=== PATIENT | male | born 1960 | race Caucasian/White ===

== ENCOUNTER 2017-09-13 09:56 | Day surgery (SDC) | payer OTHER ==
[~2017-09-13] VITALS: Ht 185.4 cm; Wt 79.4 kg
[2017-09-13] MEDS ORDERED: LEVO88TA54 (10:27)
[2017-09-13] MEDS ORDERED: GLUCAGON EMERGENCY 1 MG/KIT IV ONE (11:00)
[2017-09-13 12:37] LABS: BASOPHILS # (AUTO) 0.1 10^3/uL (0.0-0.1); BASOPHILS % (AUTO) 2 % (0-10); EOSINOPHILS # (AUTO) 0.6 10^3/uL (0.0-0.3); EOSINOPHILS % (AUTO) 8 % (0-10); HEMATOCRIT 42 % (40-54); HEMOGLOBIN 14.3 G/DL (13.3-17.7); LYMPHOCYTES # (AUTO) 1.4 X 10^3 (1.0-4.0); LYMPHOCYTES % (AUTO) 20 % (12-44); MEAN CORPUSCULAR HEMOGLOBIN 30 PG (25-34); MEAN CORPUSCULAR HGB CONC 34 G/DL (32-36); MEAN CORPUSCULAR VOLUME 88 FL (80-99); MEAN PLATELET VOLUME 10.7 FL (7.4-10.4); MONOCYTES # (AUTO) 0.9 X 10^3 (0.0-1.0); MONOCYTES % (AUTO) 14 % (0-12); NEUTROPHILS # (AUTO) 3.8 X 10^3 (1.8-7.8); NEUTROPHILS % (AUTO) 56 % (42-75); PLATELET COUNT 324 10^3/uL (130-400); RED BLOOD COUNT 4.79 10^6/uL (4.35-5.85); RED CELL DISTRIBUTION WIDTH 13.2 % (10.0-14.5); WHITE BLOOD COUNT 6.8 10^3/uL (4.3-11.0)
--- NOTE | 2017-09-13 12:38 | ED General ---
General Chief Complaint: Foreign Body Stated Complaint: STEAK STUCK IN THROAT Nursing Triage Note: pt presents to ed with complaints of steak stuck in his throat since 2100 last night. Pt is able to swallow saliva and small sips of water but ubale to keep food or large amounts of liquid down. pt denies any respiratory symptoms. Nursing Sepsis Screen: No Definite Risk Source of Information: Patient Exam Limitations: No Limitations History of Present Illness Date Seen by Provider: Sep 13, 2017 Time Seen by Provider: 10:50 Initial Comments This 56-year-old gentleman presents to the emergency room with inability to swallow after eating steak last night. He has history of hiatal hernia and sometimes has difficulty swallowing food. However, he has never had obstruction last this long. He has minimal discomfort and no other symptoms. Allergies and Home Medications Allergies Coded Allergies: No Known Drug Allergies (Unverified , 09/13/17) Home Medications Pantoprazole Sodium 40 Mg Tablet.dr, 40 MG PO BID Prescribed by: BELTRAN DE LA CRUZ on 09/13/17 1430 Sucralfate 1 Gm Tablet, 1 GM PO QID Prescribed by: BELTRAN DE LA CRUZ on 09/13/17 1430 Patient Home Medication List Home Medication List Reviewed: Yes Constitutional: no symptoms reported EENTM: no symptoms reported Respiratory: no symptoms reported Cardiovascular: no symptoms reported Gastrointestinal: see HPI Genitourinary: no symptoms reported Musculoskeletal: no symptoms reported Skin: no symptoms reported Psychiatric/Neurological: No Symptoms Reported Hematologic/Lymphatic: No Symptoms Reported Past Gfqgwos-Tfjawc-Aiablh Hx Patient Social History Alcohol Use: Occasionally Uses Recreational Drug Use: No Smoking Status: Never a Smoker Recent Foreign Travel: No Contact w/Someone Who Travel: No Recent Infectious Disease Expo: No Physical Abuse: No Sexual Abuse: No Mistreated: No Fear: No Surgeries History of Surgeries: Yes (roator cuff, upper scope) Surgeries: Abdominal (EGD), Appendectomy, Orthopedic (shoulder) Respiratory History of Respiratory Disorde: No Cardiovascular History of Cardiac Disorders: No Neurological History of Neurological Disord: No Genitourinary History of Genitourinary Disor: No Gastrointestinal History of Gastrointestinal Di: Yes Gastrointestinal Disorders: Hiatal Hernia Musculoskeletal History of Musculoskeletal Dis: No Endocrine History of Endocrine Disorders: Yes Endocrine Disorders: Hypothyroidsim HEENT History of HEENT Disorders: No Cancer History of Cancer: No Psychosocial History of Psychiatric Problem: No Suicide Risk Score: 0 Blood Transfusions History of Blood Disorders: No Physical Exam Vital Signs Vital Signs - First Documented 09/13/17 10:09 Temp 98.1 Pulse 73 Resp 18 B/P (MAP) 116/91 (99) Pulse Ox 96 O2 Delivery Room Air Capillary Refill : Less Than 3 Seconds General Appearance: No Apparent Distress, WD/WN HEENT: PERRL/EOMI, Normal ENT Inspection, Pharynx Normal Neck: Normal Inspection Respiratory: Lungs Clear, Normal Breath Sounds, No Accessory Muscle Use, No Respiratory Distress Cardiovascular: Regular Rate, Rhythm, No Edema, No Murmur Gastrointestinal: Normal Bowel Sounds, Non Tender, Soft Extremity: Normal Inspection, No Pedal Edema Neurologic/Psychiatric: Alert, Oriented x3, No Motor/Sensory Deficits, Normal Mood/Affect, cost report clerk II-XII Norm as Tested Skin: Normal Color, Warm/Dry Progress/Results/Core Measures Suspected Sepsis Recent Fever Within 48 Hours: No Infection Criteria Present: None New/Unexplained Altered Menta: No Sepsis Screen: No Definite Risk Sepsis Diagnosis: SIRS Temperature:98.1 Pulse: 73 Respiratory Rate: 18 Laboratory Tests 09/13/17 10:07: White Blood Count 6.8 Blood Pressure 116 /91 Mean: 99 Laboratory Tests 09/13/17 10:07: Creatinine 0.85, INR Comment 1.0, Platelet Count 324, Total Bilirubin 0.7 Results/Orders Lab Results Laboratory Tests Test 09/13/17 10:07 Range/Units White Blood Count 6.8 4.3-11.0 10^3/uL Red Blood Count 4.79 4.35-5.85 10^6/uL Hemoglobin 14.3 13.3-17.7 G/DL Hematocrit 42 40-54 % Mean Corpuscular Volume 88 80-99 FL Mean Corpuscular Hemoglobin 30 25-34 PG Mean Corpuscular Hemoglobin Concent 34 32-36 G/DL Red Cell Distribution Width 13.2 10.0-14.5 % Platelet Count 324 130-400 10^3/uL Mean Platelet Volume 10.7 H 7.4-10.4 FL Neutrophils (%) (Auto) 56 42-75 % Lymphocytes (%) (Auto) 20 12-44 % Monocytes (%) (Auto) 14 H 0-12 % Eosinophils (%) (Auto) 8 0-10 % Basophils (%) (Auto) 2 0-10 % Neutrophils # (Auto) 3.8 1.8-7.8 X 10^3 Lymphocytes # (Auto) 1.4 1.0-4.0 X 10^3 Monocytes # (Auto) 0.9 0.0-1.0 X 10^3 Eosinophils # (Auto) 0.6 H 0.0-0.3 10^3/uL Basophils # (Auto) 0.1 0.0-0.1 10^3/uL Prothrombin Time 12.9 12.2-14.7 SEC INR Comment 1.0 0.8-1.4 Activated Partial Thromboplast Time 33 24-35 SEC Sodium Level 137 135-145 MMOL/L Potassium Level 4.2 3.6-5.0 MMOL/L Chloride Level 108 H 98-107 MMOL/L Carbon Dioxide Level 24 21-32 MMOL/L Anion Gap 5 5-14 MMOL/L Blood Urea Nitrogen 17 7-18 MG/DL Creatinine 0.85 0.60-1.30 MG/DL Estimat Glomerular Filtration Rate > 60 BUN/Creatinine Ratio 20 Glucose Level 91 70-105 MG/DL Calcium Level 9.0 8.5-10.1 MG/DL Total Bilirubin 0.7 0.1-1.0 MG/DL Aspartate Amino Transf (AST/SGOT) 38 H 5-34 U/L Alanine Aminotransferase (ALT/SGPT) 38 0-55 U/L Alkaline Phosphatase 78 40-136 U/L Total Protein 6.1 L 6.4-8.2 GM/DL Albumin 4.0 3.2-4.5 GM/DL My Orders Orders - AUGUST BAGLEY MD Glucagon Emergency Kit (Glucagon Emergen (09/13/17 11:00) Saline Lock/Iv-Start (09/13/17 11:02) Cbc With Automated Diff (09/13/17 12:26) Comprehensive Metabolic Panel (09/13/17 12:26) Protime With Inr (09/13/17 12:26) Partial Thromboplastin Time (09/13/17 12:26) Medications Given in ED Current Medications Medications Dose Ordered Sig/Lauren Route Start Time Stop Time Status Last Admin Dose Admin Glucagon 1 mg ONCE ONCE IV 09/13/17 11:00 09/13/17 11:03 DC 09/13/17 11:14 1 MG Vital Signs/I&O Vital Sign - Last 12Hours 09/13/17 09/13/17 09/13/17 09/13/17 10:09 13:38 14:40 15:00 Temp 98.1 98.1 96.8 96.8 Pulse 73 70 77 77 Resp 18 18 16 16 B/P (MAP) 116/91 (99) 120/91 (99) 102/73 102/73 Pulse Ox 96 97 99 99 O2 Delivery Room Air Room Air Room Air 09/13/17 15:10 Temp 96.8 Pulse 77 Resp 16 B/P (MAP) 102/73 Pulse Ox 99 O2 Delivery Room Air Capillary Refill : Less Than 3 Seconds Blood Pressure Mean: 99 Progress Note : Time: 12:30 Progress Note A dose of glucagon was administered but was ineffective. A trial of drinking resulted in regurgitation of water. Case was reviewed with Dr. De La Cruz. He would like basic labs ordered and anesthesia and endoscopy crew called in. Departure Impression Impression: Primary Impression: Esophageal obstruction due to food impaction Disposition: ADMITTED INPATIENT Condition: Stable Admissions Decision to Admit Reason: Admit from ER (General) Decision to Admit/Date: Sep 13, 2017 Time/Decision to Admit Time: 12:30 Departure-Patient Inst. Referrals: MINA FARFAN MD (PCP/Family) Primary Care Physician Scripts Sucralfate (Carafate) 1 Gm Tablet 1 GM PO QID, #120 TAB Prov: BELTRAN DE LA CRUZ DO 09/13/17 Pantoprazole Sodium (Protonix) 40 Mg Tablet. 40 MG PO BID, #60 TAB Prov: BELTRAN DE LA CRUZ DO 09/13/17 AUGUST BAGLEY MD Sep 13, 2017 12:38
[2017-09-13 12:42] LABS: PROTHROMBIN TIME PATIENT 12.9 SEC (12.2-14.7)
[2017-09-13 12:47] LABS: ALANINE AMINOTRANSFERASE 38 U/L (0-55); ALKALINE PHOSPHATASE 78 U/L (40-136); BILIRUBIN,TOTAL 0.7 MG/DL (0.1-1.0); BUN/CREATININE RATIO 20; CARBON DIOXIDE 24 MMOL/L (21-32); CHLORIDE 108 MMOL/L (98-107); CREATININE SERUM 0.85 MG/DL (0.60-1.30); GFR ESTIMATED > 60; GLUCOSE 91 MG/DL (70-105); POTASSIUM 4.2 MMOL/L (3.6-5.0); SODIUM 137 MMOL/L (135-145); TOTAL PROTEIN 6.1 GM/DL (6.4-8.2)
[2017-09-13] MEDS ORDERED: HURRICAINE EXT TUBE (BENZOCAINE) ONE (13:30)
--- NOTE | 2017-09-13 13:30 | Consultation ---
History of Present Illness History of Present Illness Patient Consulted On(lizbeth/time) 09/13/17 13:24 Date Seen by Provider: Sep 13, 2017 Time Seen by Provider: 13:24 History of Present Illness consult requested by Dr. Rossi for esophageal obstruction. Patient is a 56 year old male that was eating steak last night. [place] a bite of food lodged. Has had solid foods get stuck before and then shortly after go down he states. This has not gone down. He has had some emesis when trying to get it to go down with liquids. He is having to spit some secretions and some seem to come down. Just having discomfort. Has history of hiatal hernia and has had dilation done as well in the past. He denies fever sweats chills shortness of breath or chest pain. Allergies and Home Medications Allergies Coded Allergies: No Known Drug Allergies (Unverified , 09/13/17) Patient Home Medication List Home Medication List Reviewed: Yes Past Ecelvgi-Bplyue-Gxzaaj Hx Patient Social History Alcohol Use: Occasionally Uses Recreational Drug Use: No Smoking Status: Never a Smoker Type Used: Smokeless Tobacco Recent Foreign Travel: No Contact w/Someone Who Travel: No Recent Infectious Disease Expo: No Surgeries History of Surgeries: Yes (roator cuff, upper scope) Surgeries: Abdominal (EGD), Appendectomy, Orthopedic (shoulder) Respiratory History of Respiratory Disorde: No Cardiovascular History of Cardiac Disorders: No Neurological History of Neurological Disord: No Genitourinary History of Genitourinary Disor: No Gastrointestinal History of Gastrointestinal Di: Yes Gastrointestinal Disorders: Hiatal Hernia Musculoskeletal History of Musculoskeletal Dis: No Endocrine History of Endocrine Disorders: Yes Endocrine Disorders: Hypothyroidsim HEENT History of HEENT Disorders: No Cancer History of Cancer: No Psychosocial History of Psychiatric Problem: No Blood Transfusions History of Blood Disorders: No Family Medical History Significant Family History: No Pertinent Family Hx Review of Systems-General Constitutional: no symptoms reported EENTM: see HPI Respiratory: no symptoms reported Cardiovascular: no symptoms reported Gastrointestinal: see HPI, vomiting Genitourinary: no symptoms reported Musculoskeletal: no symptoms reported Skin: no symptoms reported Psychiatric/Neurological: No Symptoms Reported Physical Exam-General Problems Physical Exam Vital Signs Vital Signs - First Documented 09/13/17 10:09 Temp 98.1 Pulse 73 Resp 18 B/P (MAP) 116/91 (99) Pulse Ox 96 O2 Delivery Room Air Capillary Refill : Less Than 3 Seconds General Appearance: no apparent distress HEENT: PERRL/EOMI, normal ENT inspection Neck: supple Respiratory: chest non-tender, no respiratory distress, no accessory muscle use Cardiovascular: regular rate, rhythm Gastrointestinal: non tender, soft, no organomegaly Rectal: deferred Back: normal inspection Extremities: normal range of motion, normal inspection, no pedal edema Neurologic/Psychiatric: elementary school social worker II-XII nml as tested, no motor/sensory deficits, alert, normal mood/affect, oriented x 3 Skin: warm/dry Lymphatic: no adenopathy Data Review Labs Laboratory Tests 09/13/17 10:07: White Blood Count 6.8, Red Blood Count 4.79, Hemoglobin 14.3, Hematocrit 42, Mean Corpuscular Volume 88, Mean Corpuscular Hemoglobin 30, Mean Corpuscular Hemoglobin Concent 34, Red Cell Distribution Width 13.2, Platelet Count 324, Mean Platelet Volume 10.7H, Neutrophils (%) (Auto) 56, Lymphocytes (%) (Auto) 20 , Monocytes (%) (Auto) 14H, Eosinophils (%) (Auto) 8, Basophils (%) (Auto) 2, Neutrophils # (Auto) 3.8, Lymphocytes # (Auto) 1.4, Monocytes # (Auto) 0.9, Eosinophils # (Auto) 0.6H, Basophils # (Auto) 0.1, Prothrombin Time 12.9, INR Comment 1.0, Activated Partial Thromboplast Time 33, Sodium Level 137, Potassium Level 4.2, Chloride Level 108H, Carbon Dioxide Level 24, Anion Gap 5, Blood Urea Nitrogen 17, Creatinine 0.85, Estimat Glomerular Filtration Rate > 60 , BUN/Creatinine Ratio 20, Glucose Level 91, Calcium Level 9.0, Total Bilirubin 0.7, Aspartate Amino Transf (AST/SGOT) 38H, Alanine Aminotransferase (ALT/SGPT) 38, Alkaline Phosphatase 78, Total Protein 6.1L, Albumin 4.0 Assessment/Plan Assessment/Plan Assessment/Plan esophageal obstruction secondary to food bolus hiatal hernia by history discussed risks and benefits of EGD he and understand risks and benefits and wishes to proceed. to endoscopy BELTRAN SONG DO Sep 13, 2017 13:30
[2017-09-13] MEDS ORDERED: MIDAZOLAM 5 MG/5 ML (VERSED) VIAL ONE (13:32)
[2017-09-13] MEDS ORDERED: PROPOFOL INJECTION 50 ML IV ONE (13:32)
[2017-09-13] MEDS ORDERED: LACTATED RINGERS 1,000 ML IV ONE (13:43)
[2017-09-13] MEDS ORDERED: SUCR1TAB36 PO (14:30)
[2017-09-13] MEDS ORDERED: PANT40TA2 PO (14:30)
--- NOTE | 2017-09-13 14:32 | Discharge Inst-Simple/Standard ---
Discharge Inst-Standard Patient Instructions/Follow Up Plan of Care/Instructions/FU: 2 weeks Dorothy Clear liquid diet 3 days then advance diet. Chew your food well. Activity as Tolerated: Yes Discharge Diet: Liquid Diet Other Inst to Patient Follow up Appt: Make appointment for 2 week. Symptoms to Report: Appetite Changes, Extremity Discoloration, Numbness/Tingling, Swelling Increased , Bleeding Excessive, Eyesight Changes, Pain Increased, Urine Color Change, Constipation(Persistent), Fever over 101 degree F, Pain/Pressure in chest, Urinating Difficulty, Cough Up/Vomit Blood, Heart Beat Irreg/Pounding, Pain/ Pressure in jaw, Vaginal Bleeding Increase, Cramps in feet or legs, Lightheadedness, Pain/Pressure in shoulder, Diarrhea(Persistent), Memory Changes Suddenly, Questions/Concerns, Weight gain consecutive days, Dizziness/ Fainting, Nausea/Vomiting, Shortness of Breath, Weight gain over 2 pounds If questions or concerns contact your physician Or seek help at emergency department. BELTRAN SONG DO Sep 13, 2017 14:32
--- NOTE | 2017-09-13 14:34 | Progress Note-Post Operative ---
Post-Operative Progess Note Surgeon (s)/Bottom Turner (s) Surgeon BELTRAN SONG DO Bottom Turner: na Pre-Operative Diagnosis esophageal obstuction Post-Operative Diagnosis esophageal obstruction secondary to food bolus hiatal hernia gastris with small antral ulcerations Procedure & Operative Findings Date of Procedure 09/13/17 Procedure Performed/Findings egd with biopsies antrum and removal of food bolus. Anesthesia Type per sales demonstrator Estimated Blood Loss Estimated blood loss (mL): none Specimens/Packing Specimens Removed antrum BELTRAN SONG DO Sep 13, 2017 14:34
[2017-09-13 14:40] VITALS: BP 102/73
[2017-09-13 15:00] VITALS: BP 102/73
[2017-09-13 15:10] VITALS: BP 102/73
[2017-09-13] MEDS ORDERED: LACTATED RINGERS 1,000 ML IV STA (15:28)
[2017-09-13] MEDS ORDERED: HURRICAINE EXT TUBE (BENZOCAINE) XX PRN (15:30)
--- NOTE | 2017-09-13 17:11 | OPERATIVE REPORT ---
DATE OF SERVICE: 09/13/2017 PREOPERATIVE DIAGNOSIS: Esophageal obstruction. POSTOPERATIVE DIAGNOSES: Esophageal obstruction secondary to food bolus, hiatal hernia, gastritis with small antral ulcerations. PROCEDURE: EGD with biopsies of antrum and removal of food bolus. SURGEON: Beltran De La Cruz DO. ANESTHESIA: Per WARP WORKER. ESTIMATED BLOOD LOSS: None. COMPLICATIONS: None. INDICATIONS: The patient is a 56-year-old male who has been having several years of difficulty with swallowing. He was eating dinner last night and eating steak. He has continued to have problems with swallowing, continued into today. He is able to swallow some secretions, but some of them is causing him the nausea, get nausea and vomiting as well. The patient was explained risks and benefits of having EGD performed. He understands risks and benefits and wished to proceed with procedure. Consent was signed on the chart. DESCRIPTION OF PROCEDURE: The patient was taken to the endoscopy suite, was placed in the left lateral recumbent position. Timeout was performed. Scope was inserted in the mouth, down the esophagus and a large piece of steak was encountered. A snare was used to remove the steak from the esophagus. Scope was then reinserted into the mouth down the esophagus and there is some slight narrowing, but the scope was able to be passed without any difficulty through the remainder of the esophagus. This likely from edema from the food bolus. Scope was continued to be advanced through the stomach and into the duodenum. There were no polyps, masses or ulcerations within the duodenum. Scope was slowly retracted back into the stomach where it was further insufflated demonstrating erythematous changes suggestive of gastritis with some several small antral ulcerations. Biopsies were obtained of the antrum. Scope was retroflexed noting just a small hiatal hernia, no other pathology noted. Scope was returned to its normal position, slowly withdrawn back into the distal esophagus again noting some slight erythema and edema. Scope was slowly retracted back to completely remove, noting no other pathology. The patient tolerated the procedure well without any complications. He was taken to the recovery room in stable condition. RECOMMENDATIONS: The patient will be on Protonix 40 mg twice a day and Carafate 1 gram 4 times a day. The patient will follow up in 2 weeks in the office. Likely, he will need a repeat endoscopy in 3 to 6 months to reevaluate. Job ID: [id number] DocumentID: [id number] Dictated Date: 09/13/2017 14:38:22 Meal Room Hand Date: 09/13/2017 17:10:07 Dictated By: BELTRAN DE LA CRUZ DO
== END 2017-09-13 15:10 | disposition home or self-care (01) ==
LOC: ER 09:59 → ENDO 12:58
PROVIDERS: ATTEND Surgery
DX: T18.128A Food in esophagus causing other injury, initial encounter (principal); K29.70 Gastritis, unspecified, without bleeding; K25.9 Gastric ulcer, unspecified as acute or chronic, without hemorrhage or perforation; K44.9 Diaphragmatic hernia without obstruction or gangrene; E03.9 Hypothyroidism, unspecified
CPT/HCPCS: 36415; 80053; 85025; 85610; 85730; 96374

== ENCOUNTER 2017-11-14 16:45 | Outpatient (CLI) | payer OTHER ==
[~2017-11-14 16:45] MED LIST: LEVO88TA54; PANT40TA2 PO; SUCR1TAB36 PO
== END 2017-11-14 17:10 | disposition home or self-care (01) ==
LOC: SLEEP 16:45
PROVIDERS: ATTEND Nurse Practitioner Family
DX: G47.50 Parasomnia, unspecified (principal); G47.30 Sleep apnea, unspecified

== ENCOUNTER → 2019-10-01 | Outpatient (CLI) | payer OTHER ==
--- NOTE | 2019-10-01 11:38 | Diagnostic Imaging Report ---
EXAMINATION: Chest 2 view INDICATION: Cough for 4 months. COMPARISON: None available. FINDINGS: The lung volumes are normal. No focal consolidation is seen. Bronchial wall thickening is seen in the perihilar regions. No large pleural effusion or pneumothorax is seen. The cardiomediastinal silhouette is normal in size and contour. No acute osseous abnormality is seen. IMPRESSION: 1. Bronchial wall thickening, which can be seen with bronchitis/bronchiolitis. No focal consolidations. No pleural effusion. Dictated by: Dictated on workstation # [id number]
== END ==
LOC: RAD FS 11:18
PROVIDERS: ATTEND Emergency Medicine
DX: R05 Cough (principal)
CPT/HCPCS: 71046

== ENCOUNTER → 2021-09-04 | Outpatient (CLI) | payer OTHER ==
--- NOTE | 2021-09-04 09:19 | Diagnostic Imaging Report ---
INDICATION: KNEE PAIN COMPARISON: None. FINDINGS: 3 views of the left knee joint demonstrate no acute fracture or dislocation. No focal osseous lesions are seen. No significant joint effusion is seen. The surrounding soft tissue structures are unremarkable. There are no radiopaque foreign bodies. IMPRESSION: 1. No acute fractures or dislocations of the left knee joint. Dictated by: Dictated on workstation # [id number]
== END ==
LOC: RAD FS 08:52
PROVIDERS: ATTEND Nurse Practitioner
DX: M25.562 Pain in left knee (principal)
CPT/HCPCS: 73562

== ENCOUNTER 2022-03-28 08:22 | Outpatient (CLI) | payer OTHER ==
[~2022-03-28] VITALS: Ht 185.4 cm; Wt 83.5 kg
== END 2022-03-29 11:25 | disposition home or self-care (01) ==
LOC: PREOP 08:22
PROVIDERS: ATTEND Surgery
DX: Z01.818 Encounter for other preprocedural examination (principal)

== ENCOUNTER 2022-04-09 12:57 | Day surgery (SDC) | payer OTHER ==
[2022-04-09] VITALS (7 sets, daily range): BP systolic 110–134; BP diastolic 80–195
[~2022-04-09] VITALS: Ht 185 cm; Wt 83.5 kg
[2022-04-09] MEDS ORDERED: LACTATED RINGERS 1,000 ML IV STA (13:13)
[2022-04-09] MEDS ORDERED: HURRICAINE EXT TUBE (BENZOCAINE) XX PRN (13:15)
[2022-04-09] MEDS ORDERED: LACTATED RINGERS 1,000 ML IV ONE (13:16)
--- NOTE | 2022-04-09 14:37 | Progress Note-Pre Operative ---
Pre-Operative Progress Note Date of Available H&P: Mar 27, 2022 Date H&P Reviewed: Apr 09, 2022 Time H&P Reviewed: 14:37 History & Physical: H&P Reviewed, Patient Examed, No changes noted Pre-Operative Diagnosis: dysphagia, screening colonoscopy BELTRAN SONG DO Apr 09, 2022 14:37
[2022-04-09] MEDS ORDERED: MIDAZOLAM 2 MG/2 ML (VERSED) VIAL ONE (15:33)
[2022-04-09] MEDS ORDERED: PROPOFOL INJECTION 50 ML IV ONE ×2 (15:33→15:58)
--- NOTE | 2022-04-09 16:25 | Progress Note-Post Operative ---
Post-Operative Progess Note Surgeon (s)/Mailing Machine Helper (s) Surgeon BELTRAN SONG DO Mailing Machine Helper: NA Pre-Operative Diagnosis dysphagia, screening colonoscopy Post-Operative Diagnosis hiatal hernia, esophageal stricture 13mm, ascending colon polyp Procedure & Operative Findings Date of Procedure 04/09/22 Procedure Performed/Findings EGD with 13mm dilatation and biopsy colonoscopy with hot bx polypectomy x1 Anesthesia Type per plastic design applier Estimated Blood Loss Estimated blood loss (mL): scant Specimens/Packing Specimens Removed ascending colon polyp x1 antrum bx x1 BELTRAN SONG DO Apr 09, 2022 16:25
--- NOTE | 2022-04-09 16:27 | Discharge Inst-Simple/Standard ---
Discharge Inst-Standard Patient Instructions/Follow Up Plan of Care/Instructions/FU: f/u with Dr. De La Cruz in 2 weeks Activity as Tolerated: Yes Discharge Diet: Regular Diet BELTRAN DE LA CRUZ DO Apr 09, 2022 16:26
--- NOTE | 2022-04-09 17:48 | Anesthesia-General Post-Op ---
MAC Patient Condition Mental Status/LOC: Same as Preop Cardiovascular: Satisfactory Nausea/Vomiting: Absent Respiratory: Satisfactory Pain: Controlled Complications: Absent Post Op Complications Complications None Follow Up Care/Instructions Patient Instructions None needed. Anesthesiology Discharge Order Discharge Order Patient is doing well, no complaints, stable vital signs, no apparent adverse anesthesia problems. No complications reported per nursing. JAISON GILES CRNA Apr 09, 2022 17:48
--- NOTE | 2022-04-10 00:06 | OPERATIVE REPORT ---
DATE OF SERVICE: 04/09/2022 PREOPERATIVE DIAGNOSES: Dysphagia, screening colonoscopy. POSTOPERATIVE DIAGNOSES: Esophageal stricture, ascending colon polyp. PROCEDURES: EGD with biopsy and dilatation to 13 mm of esophageal stricture, colonoscopy with hot biopsy polypectomy x1. SURGEON: Beltran De La Cruz DO ANESTHESIA: Per INFORMAL WAITER/WAITRESS. ESTIMATED BLOOD LOSS: Scant. COMPLICATIONS: None. INDICATIONS: The patient is a 61-year-old male with dysphagia symptoms and needing screening colonoscopy. He understands risks and benefits and wishes to proceed with procedures. Consent was signed in the chart. DESCRIPTION OF PROCEDURE: The patient was taken to endoscopy suite, placed in left lateral recumbent position. Timeout was performed. Scope was inserted in mouth, down the esophagus, noting a slight esophageal stricture. Scope was able to be passed through this and advanced through the stomach and into the duodenum without difficulty. No polyps, masses or ulcerations within the duodenum. Scope was then slowly retracted back into the stomach where it was further insufflated. No polyps, masses or ulcerations. Biopsy of the antrum was obtained. Scope was retroflexed, noting a very small hiatal hernia. Scope was returned to its normal position, slowly withdrawn to distal esophagus, noting the esophageal stricture. Serial dilations were made. Balloon dilatation of the stricture from 10 mm up to 13 mm, got a little bit of bloody return from the mucosa. Therefore, stopped at this point and then scope was slowly retracted back until completely removed. The patient tolerated the procedure well without any complications. He was taken to recovery room in stable condition. RECOMMENDATIONS: The patient will follow up in 2 weeks to see how he is doing. We will continue on Protonix. We will likely need a repeat EGD with dilatation. He will need repeat colonoscopy in 5 years unless any changes before that would possibly need to be reevaluated before that. Job ID: [id number] DocumentID: [id number] Dictated Date: 04/09/2022 16:27:12 Janitorial Services Supervisor Date: 04/10/2022 00:05:32 Dictated By: BELTRAN DE LA CRUZ DO
== END 2022-04-09 17:03 | disposition home or self-care (01) ==
LOC: ENDO 12:57
PROVIDERS: ATTEND Surgery
DX: Z12.11 Encounter for screening for malignant neoplasm of colon (principal); D12.2 Benign neoplasm of ascending colon; K31.89 Other diseases of stomach and duodenum; K22.2 Esophageal obstruction; G47.33 Obstructive sleep apnea (adult) (pediatric); Z79.899 Other long term (current) drug therapy